=== PATIENT | female | born 1960 | race Caucasian/White ===

== ENCOUNTER 2024-12-23 11:16 | Emergency (ER) | payer MEDICARE, BC ==
[~2024-12-23] VITALS: Ht 172.7 cm; Wt 77.1 kg
[2024-12-23 11:56] LABS: BASOPHILS # (AUTO) 0.1 K/uL (0.0-0.2); BASOPHILS % (AUTO) 0.5 % (0.0-2.0); EOSINOPHILS # (AUTO) 0.4 K/uL (0.0-0.7); EOSINOPHILS % (AUTO) 3.8 % (0.0-6.0); HEMATOCRIT 38 % (33-45); HEMOGLOBIN 13.1 g/dL (11.5-14.8); LYMPHOCYTES # (AUTO) 0.7 K/uL (0.8-4.8); LYMPHOCYTES % (AUTO) 6.6 % (20.0-44.0); MEAN CORPUSCULAR HEMOGLOBIN 31 PG (26.0-33.0); MEAN CORPUSCULAR HGB CONC 34 g/dl (31.0-36.0); MEAN CORPUSCULAR VOLUME 89 fL (82-100); MONOCYTES # (AUTO) 0.6 K/uL (0.1-1.30); MONOCYTES % (AUTO) 5.6 % (2.0-12.0); NEUTROPHILS # (AUTO) 8.9 K/uL (1.8-8.9); NEUTROPHILS % (AUTO) 83.5 % (43.0-81.0); PLATELET COUNT (AUTO) 213 K/uL (150-450); RED BLOOD CELL COUNT(AUTO) 4.27 MIL/uL (4.0-5.2); RED CELL DISTRIBUTION WIDTH 15.8 % (11.5-15.0); WHITE BLOOD COUNT (AUTO) 10.7 K/uL (4.3-11.0)
[2024-12-23 12:02] LABS: CALCIUM, SERUM 8.6 mg/dL (8.5-10.1); CREATININE 0.5 mg/dL (0.6-1.3); POTASSIUM 3.2 mmol/L (3.5-5.1)
[2024-12-23 12:09] LABS: ALBUMIN 2.5 g/dL (3.4-5.0); BILIRUBIN,DIRECT 0.3 mg/dL (0.0-0.2); BILIRUBIN,TOTAL 0.9 mg/dL (0.2-1.0)
[2024-12-23 14:35] LABS: INR 1.31 (0.91-1.10); PROTHROMBIN TIME 13.6 SECS (9.2-11.1)
[2024-12-23 15:09] VITALS: BP 145/70; TEMP 97.8; O2SAT 98
== END 2024-12-23 15:10 | disposition home or self-care (01) ==
LOC: ER 11:18
DX: R53.1 Weakness (principal); I10 Essential (primary) hypertension; E11.9 Type 2 diabetes mellitus without complications; C78.7 Secondary malignant neoplasm of liver and intrahepatic bile duct; Z85.07 Personal history of malignant neoplasm of pancreas; Z88.0 Allergy status to penicillin; W10.9XXA Fall (on) (from) unspecified stairs and steps, initial encounter; Y93.89 Activity, other specified; Y92.89 Other specified places as the place of occurrence of the external cause; Y99.8 Other external cause status
CPT/HCPCS: 36415; 70450-TC; 72125-TC; 80048-TC; 80076-TC; 85025-TC; 85610-TC

== ENCOUNTER 2025-01-06 22:18 | Inpatient (IN) | payer BC, MEDICARE ==
[~2025-01-06] VITALS: Ht 172.7 cm; Wt 76.7 kg
[2025-01-06 22:45] LABS: BASOPHILS % (AUTO) 0.3 % (0.0-2.0); EOSINOPHILS # (AUTO) 0.3 K/uL (0.0-0.7); EOSINOPHILS % (AUTO) 1.8 % (0.0-6.0); HEMATOCRIT 40 % (33-45); HEMOGLOBIN 13.4 g/dL (11.5-14.8); LYMPHOCYTES # (AUTO) 1.1 K/uL (0.8-4.8); LYMPHOCYTES % (AUTO) 6.9 % (20.0-44.0); MEAN CORPUSCULAR HEMOGLOBIN 30 PG (26.0-33.0); MEAN CORPUSCULAR HGB CONC 33 g/dl (31.0-36.0); MEAN CORPUSCULAR VOLUME 91 fL (82-100); MONOCYTES # (AUTO) 0.8 K/uL (0.1-1.30); MONOCYTES % (AUTO) 4.8 % (2.0-12.0); NEUTROPHILS # (AUTO) 14.2 K/uL (1.8-8.9); NEUTROPHILS % (AUTO) 86.2 % (43.0-81.0); PLATELET COUNT (AUTO) 237 K/uL (150-450); RED BLOOD CELL COUNT(AUTO) 4.44 MIL/uL (4.0-5.2); RED CELL DISTRIBUTION WIDTH 16.1 % (11.5-15.0); WHITE BLOOD COUNT (AUTO) 16.4 K/uL (4.3-11.0)
[2025-01-06 22:51] LABS: CARBON DIOXIDE 23 mmol/L (21-32); CHLORIDE 94 mmol/L (98-107); CREATININE 1.1 mg/dL (0.6-1.3); POTASSIUM 3.5 mmol/L (3.5-5.1); SODIUM SERUM 134 mmol/L (136-145); UREA NITROGEN, BLOOD 23 mg/dL (7-18)
[2025-01-06 22:57] LABS: ALANINE AMINOTRANSFERASE 23 U/L (12-78); ALBUMIN 2.4 g/dL (3.4-5.0); ALKALINE PHOSPHATASE 156 U/L (46-116); ASPARTATE AMINOTRANSFERASE 26 U/L (15-37); BILIRUBIN,DIRECT 0.6 mg/dL (0.0-0.2); BILIRUBIN,TOTAL 1.3 mg/dL (0.2-1.0); LIPASE 66 U/L (16-77); TOTAL PROTEIN, SERUM 5.9 g/dL (6.4-8.2)
[2025-01-06 22:58] LABS: GLUCOSE 368 mg/dL (74-106)
[2025-01-06 22:59] LABS: LACTIC ACID 2.8 mmol/L (0.4-2.0)
[2025-01-06] MEDS ORDERED: IV NS 0.9% 1,000 ML BAG IV ONE (23:00)
[2025-01-06 23:02] LABS: MAGNESIUM 2.1 mg/dL (1.8-2.4)
[2025-01-06 23:06] LABS: THYROID STIMULATING HORMONE 3.39 uIU/mL (0.358-3.74)
[2025-01-06] MEDS ORDERED: AZTREONAM 1 G VIAL ONE ×2 (23:06→23:39)
[2025-01-06] MEDS ORDERED: VANCOMYCIN 1 GM /D5W 250 ML PB IV ONE (23:07)
[2025-01-06] MEDS: AZTREONAM 2 G in IV NS 0.9% 100 ML IV ONE (23:20)
[2025-01-06] MEDS: IV NS 0.9% 1,000 ML BAG IV ONE (23:20)
[2025-01-06] MEDS: VANCOMYCIN 1 GM in IV D5W 250 ML IV ONE (23:55)
[2025-01-07] VITALS (7 sets, daily range): BP systolic 135–147; BP diastolic 45–60; TEMP 97.3–97.7; O2SAT 94–96
[2025-01-07] MEDS ORDERED: ONDANSETRON HCL/PF 4 MG/2 ML VIAL IVP PRN
[2025-01-07] MEDS ORDERED: MAGNESIUM HYDROXIDE 30 ML UDC PO PRN
[2025-01-07] MEDS: ENOXAPARIN SODIUM 40 MG/0.4 ML DISP.SYRIN SQ SCH
[2025-01-07 01:44] LABS: APPEARANCE,URINE CLEAR (CLEAR); BILIRUBIN,URINE 2+ (NEGATIVE); BLOOD, URINE NEGATIVE Ery/uL (NEGATIVE); COLOR,URINE DARK YELLOW (YELLOW); KETONES,URINE 3+ mg/dL (NEGATIVE); LEUKOCYTE ESTERASE ,URINE NEGATIVE (NEGATIVE); NITRITE, URINE NEGATIVE (NEGATIVE); PROTEIN,URINE 2+ mg/dl (NEGATIVE); UGLUCOSE TRACE mg/dL (NEGATIVE)
[2025-01-07 01:46] LABS: ADD URINE CULTURE NO; BACTERIA,URINE Rare /HPF (None Seen); SQUAMOUS EPITHELIAL CELL,UR Moderate /HPF (None Seen); WBC,URINE 0-2 /HPF (0-3)
[2025-01-07 01:47] LABS: HYALINE CASTS, URINE Few /LPF (None Seen)
[2025-01-07] MEDS: TRAZODONE 50 MG TABLET PO SCH (02:25)
[2025-01-07] MEDS ORDERED: ATOR40TA PO (04:23)
[2025-01-07] MEDS ORDERED: AZTREONAM 1 G in IV NS 0.9% 100 ML IV SCH ×2 (05:00→07:00)
[2025-01-07] MEDS ORDERED: AZTREONAM 1 G VIAL IM SCH (05:00)
[2025-01-07 06:52] LABS: BASOPHILS % (AUTO) 0.1 % (0.0-2.0); EOSINOPHILS # (AUTO) 0.2 K/uL (0.0-0.7); EOSINOPHILS % (AUTO) 1.4 % (0.0-6.0); HEMATOCRIT 40 % (33-45); HEMOGLOBIN 13.2 g/dL (11.5-14.8); LYMPHOCYTES # (AUTO) 0.7 K/uL (0.8-4.8); LYMPHOCYTES % (AUTO) 4.8 % (20.0-44.0); MEAN CORPUSCULAR HEMOGLOBIN 30 PG (26.0-33.0); MEAN CORPUSCULAR HGB CONC 33 g/dl (31.0-36.0); MEAN CORPUSCULAR VOLUME 91 fL (82-100); MONOCYTES # (AUTO) 0.7 K/uL (0.1-1.30); NEUTROPHILS # (AUTO) 12.2 K/uL (1.8-8.9); NEUTROPHILS % (AUTO) 88.7 % (43.0-81.0); PLATELET COUNT (AUTO) 196 K/uL (150-450); RED BLOOD CELL COUNT(AUTO) 4.36 MIL/uL (4.0-5.2); RED CELL DISTRIBUTION WIDTH 16.4 % (11.5-15.0); WHITE BLOOD COUNT (AUTO) 13.7 K/uL (4.3-11.0)
[2025-01-07] MEDS: PANTOPRAZOLE 40 MG TABLET.DR PO SCH (08:47)
[2025-01-07] MEDS: LEVOFLOXACIN 750 MG /D5W 150ML 750 MG in PREMIX 1 EA IV SCH (08:47)
[2025-01-07] MEDS: VANCOMYCIN 500 MG in IV D5W 100ml IV ONE (09:35)
[2025-01-07 10:37] LABS: ALBUMIN 2.4 g/dL (3.4-5.0); BILIRUBIN,DIRECT 0.5 mg/dL (0.0-0.2); BILIRUBIN,TOTAL 1.1 mg/dL (0.2-1.0); CALCIUM, SERUM 9.1 mg/dL (8.5-10.1); CREATININE 1.1 mg/dL (0.6-1.3); MAGNESIUM 2.1 mg/dL (1.8-2.4); PHOSPHORUS 2.6 mg/dL (2.5-4.9); POTASSIUM 3.7 mmol/L (3.5-5.1); TOTAL PROTEIN, SERUM 6.1 g/dL (6.4-8.2)
[2025-01-07] MEDS ORDERED: ESCI20TA PO (12:02)
[2025-01-07] MEDS ORDERED: LISI40TA13 PO (12:02)
[2025-01-07] MEDS ORDERED: METO25TA4 PO (12:02)
[2025-01-07] MEDS ORDERED: BLOO-668 IN (12:02)
[2025-01-07] MEDS ORDERED: INSU300I SQ (12:02)
[2025-01-07] MEDS ORDERED: INSU100I14 SQ (12:02)
[2025-01-07] MEDS ORDERED: ATOR80TA PO (12:02)
[2025-01-07 12:42] LABS: INR 1.51 (0.91-1.10); PROTHROMBIN TIME 15.6 SECS (9.2-11.1)
[2025-01-07] MEDS: VANCOMYCIN 750 MG in IV D5W 250 ML IV SCH (21:35)
[2025-01-08 06:37] LABS: INR 1.52 (0.91-1.10); PARTIAL THROMBOPLASTIN TIME 27.3 SEC (24.3-34.3); PROTHROMBIN TIME 15.7 SECS (9.2-11.1)
[2025-01-08 08:00] VITALS: BP 113/86; TEMP 98.8; O2SAT 96
[2025-01-08 08:12] LABS: BASOPHILS # (AUTO) 0.1 K/uL (0.0-0.2); BASOPHILS % (AUTO) 0.3 % (0.0-2.0); EOSINOPHILS # (AUTO) 0.1 K/uL (0.0-0.7); EOSINOPHILS % (AUTO) 0.9 % (0.0-6.0); HEMATOCRIT 40 % (33-45); HEMOGLOBIN 13.2 g/dL (11.5-14.8); LYMPHOCYTES # (AUTO) 0.6 K/uL (0.8-4.8); LYMPHOCYTES % (AUTO) 3.8 % (20.0-44.0); MEAN CORPUSCULAR HEMOGLOBIN 30 PG (26.0-33.0); MEAN CORPUSCULAR HGB CONC 33 g/dl (31.0-36.0); MEAN CORPUSCULAR VOLUME 92 fL (82-100); MONOCYTES # (AUTO) 0.7 K/uL (0.1-1.30); MONOCYTES % (AUTO) 4.7 % (2.0-12.0); NEUTROPHILS # (AUTO) 13.2 K/uL (1.8-8.9); NEUTROPHILS % (AUTO) 90.3 % (43.0-81.0); PLATELET COUNT (AUTO) 184 K/uL (150-450); RED BLOOD CELL COUNT(AUTO) 4.39 MIL/uL (4.0-5.2); RED CELL DISTRIBUTION WIDTH 16.3 % (11.5-15.0); WHITE BLOOD COUNT (AUTO) 14.6 K/uL (4.3-11.0)
[2025-01-08 08:28] LABS: CALCIUM, SERUM 8.9 mg/dL (8.5-10.1); CREATININE 1.2 mg/dL (0.6-1.3); MAGNESIUM 2.2 mg/dL (1.8-2.4); PHOSPHORUS 2.8 mg/dL (2.5-4.9); POTASSIUM 3.5 mmol/L (3.5-5.1)
[2025-01-08 08:30] LABS: ALBUMIN 2.5 g/dL (3.4-5.0); BILIRUBIN,DIRECT 0.6 mg/dL (0.0-0.2); BILIRUBIN,TOTAL 1.3 mg/dL (0.2-1.0); TOTAL PROTEIN, SERUM 6.2 g/dL (6.4-8.2)
[2025-01-08] MEDS ORDERED: IOHEXOL-300 100 ML VIAL IV ONE (10:47)
[2025-01-08] MEDS ORDERED: IV NS 0.9% 250 ML IV ONE (10:47)
[2025-01-08] MEDS: INSULIN REGULAR, HUMAN 100 UNIT/ML 3 ML VIAL SQ PRN (12:26)
[2025-01-08] MEDS ORDERED: DEXTROSE 50%-WATER 50 ML DISP.SYRIN IV PRN (12:30)
[2025-01-08 13:47] LABS: THYROID STIMULATING HORMONE 3.23 uIU/mL (0.358-3.74)
[2025-01-08] MEDS: INSULIN REGULAR, HUMAN 100 UNIT/ML 10 ML VIAL SQ ONE (14:06)
[2025-01-08 16:00] VITALS: BP 132/69; TEMP 97.7; O2SAT 96
[2025-01-08] MEDS: ACETAMINOPHEN 325 MG TABLET PO PRN (16:14)
[2025-01-08 16:59] VITALS: BP 113/86; TEMP 98.8; O2SAT 96
[2025-01-08] MEDS: BLOOD SUGAR DIAGNOSTIC 1 EACH STRIP VI SCH (17:20)
[2025-01-08 21:08] VITALS: BP 112/56; TEMP 97.7; O2SAT 98
[2025-01-08] MEDS: METOPROLOL SUCCINATE 25 MG TAB.SR.24H PO SCH (21:39)
[2025-01-08] MEDS: INSULIN GLARGINE, 100 UNIT/ML CARTRIDGE SQ SCH (22:10)
[2025-01-08] MEDS: *INSULIN REGULAR(HUMULIN R)HUM 100 UNIT/ML VIAL SQ PRN (22:18)
[2025-01-09 06:12] LABS: AFP, TUMOR MARKER <1.8 ng/mL (0.0-9.2)
[2025-01-09 06:59] LABS: ALBUMIN 2.4 g/dL (3.4-5.0); BILIRUBIN,TOTAL 1.2 mg/dL (0.2-1.0); CALCIUM, SERUM 9.1 mg/dL (8.5-10.1); POTASSIUM 3.3 mmol/L (3.5-5.1); TOTAL PROTEIN, SERUM 6.1 g/dL (6.4-8.2)
[2025-01-09 07:08] LABS: BASOPHILS % (AUTO) 0.1 % (0.0-2.0); EOSINOPHILS # (AUTO) 0.3 K/uL (0.0-0.7); EOSINOPHILS % (AUTO) 1.8 % (0.0-6.0); HEMATOCRIT 43 % (33-45); HEMOGLOBIN 14.6 g/dL (11.5-14.8); LYMPHOCYTES # (AUTO) 0.9 K/uL (0.8-4.8); MEAN CORPUSCULAR HEMOGLOBIN 31 PG (26.0-33.0); MEAN CORPUSCULAR HGB CONC 34 g/dl (31.0-36.0); MEAN CORPUSCULAR VOLUME 90 fL (82-100); MONOCYTES # (AUTO) 0.6 K/uL (0.1-1.30); MONOCYTES % (AUTO) 4.2 % (2.0-12.0); NEUTROPHILS # (AUTO) 13.5 K/uL (1.8-8.9); NEUTROPHILS % (AUTO) 87.9 % (43.0-81.0); PLATELET COUNT (AUTO) 176 K/uL (150-450); RED BLOOD CELL COUNT(AUTO) 4.75 MIL/uL (4.0-5.2); RED CELL DISTRIBUTION WIDTH 16.1 % (11.5-15.0); WHITE BLOOD COUNT (AUTO) 15.3 K/uL (4.3-11.0)
[2025-01-09 08:00] VITALS: BP 112/56; TEMP 97.3; O2SAT 97
[2025-01-09 08:10] LABS: CARBOHYDRATE AG 19-9 28634 U/mL (0-35); FOLIC ACID 7.4 ng/mL (>3.0)
[2025-01-09] MEDS ORDERED: LISINOPRIL (20MG) 20 MG TABLET PO SCH (09:00)
[2025-01-09] MEDS: ESCITALOPRAM OXALATE (10 MG) 10 MG TABLET PO SCH (09:20)
[2025-01-09] MEDS: POTASSIUM CHLORIDE 20 MEQ POWDER PACKET PO ONE (09:21)
[2025-01-09] MEDS: LIDOCAINE 5% (PATCH) 1 EA PATCH TP SCH (11:49)
[2025-01-09 16:00] VITALS: BP 104/57; TEMP 97.3; O2SAT 99
[2025-01-09 20:00] VITALS: BP 98/52; TEMP 97.9; O2SAT 97
[2025-01-10 03:00] VITALS: BP 98/52; TEMP 97.9; O2SAT 97
[2025-01-10 06:35] LABS: BASOPHILS % (AUTO) 0.1 % (0.0-2.0); EOSINOPHILS # (AUTO) 0.1 K/uL (0.0-0.7); HEMATOCRIT 40 % (33-45); HEMOGLOBIN 13.1 g/dL (11.5-14.8); LYMPHOCYTES % (AUTO) 6.6 % (20.0-44.0); MEAN CORPUSCULAR HEMOGLOBIN 30 PG (26.0-33.0); MEAN CORPUSCULAR HGB CONC 33 g/dl (31.0-36.0); MEAN CORPUSCULAR VOLUME 92 fL (82-100); MONOCYTES # (AUTO) 0.8 K/uL (0.1-1.30); MONOCYTES % (AUTO) 5.8 % (2.0-12.0); NEUTROPHILS # (AUTO) 12.7 K/uL (1.8-8.9); NEUTROPHILS % (AUTO) 86.5 % (43.0-81.0); PLATELET COUNT (AUTO) 122 K/uL (150-450); RED BLOOD CELL COUNT(AUTO) 4.31 MIL/uL (4.0-5.2); RED CELL DISTRIBUTION WIDTH 15.9 % (11.5-15.0); WHITE BLOOD COUNT (AUTO) 14.7 K/uL (4.3-11.0)
[2025-01-10 06:48] LABS: CALCIUM, SERUM 8.8 mg/dL (8.5-10.1)
[2025-01-10 06:54] LABS: ALBUMIN 2.1 g/dL (3.4-5.0); BILIRUBIN,TOTAL 1.1 mg/dL (0.2-1.0); POTASSIUM 3.8 mmol/L (3.5-5.1); TOTAL PROTEIN, SERUM 5.4 g/dL (6.4-8.2)
[2025-01-10 08:00] VITALS: BP 96/47; TEMP 97.7; O2SAT 97
[2025-01-10 16:00] VITALS: BP 95/49; TEMP 97.9; O2SAT 97
[2025-01-10] MEDS: SODIUM CHLORIDE 1000 MG TABLET PO SCH (16:57)
[2025-01-10 20:00] VITALS: BP 107/55; TEMP 97.5; O2SAT 97
[2025-01-11 07:00] VITALS: BP 102/54; TEMP 98.1; O2SAT 98
[2025-01-11 07:37] LABS: ALBUMIN 2.1 g/dL (3.4-5.0); BILIRUBIN,TOTAL 1.3 mg/dL (0.2-1.0); CALCIUM, SERUM 8.5 mg/dL (8.5-10.1); PHOSPHORUS 2.4 mg/dL (2.5-4.9); TOTAL PROTEIN, SERUM 5.5 g/dL (6.4-8.2)
[2025-01-11 07:44] LABS: THYROID STIMULATING HORMONE 4.09 uIU/mL (0.358-3.74); URIC ACID 5.9 mg/dL (2.6-7.2)
[2025-01-11 08:04] LABS: CREATININE 0.9 mg/dL (0.6-1.3)
[2025-01-11 08:27] LABS: BASOPHILS % (AUTO) 0.1 % (0.0-2.0); EOSINOPHILS # (AUTO) 0.2 K/uL (0.0-0.7); EOSINOPHILS % (AUTO) 1.4 % (0.0-6.0); HEMATOCRIT 42 % (33-45); HEMOGLOBIN 13.8 g/dL (11.5-14.8); LYMPHOCYTES # (AUTO) 0.7 K/uL (0.8-4.8); LYMPHOCYTES % (AUTO) 5.5 % (20.0-44.0); MEAN CORPUSCULAR HEMOGLOBIN 30 PG (26.0-33.0); MEAN CORPUSCULAR HGB CONC 33 g/dl (31.0-36.0); MEAN CORPUSCULAR VOLUME 92 fL (82-100); MONOCYTES # (AUTO) 0.8 K/uL (0.1-1.30); MONOCYTES % (AUTO) 5.8 % (2.0-12.0); NEUTROPHILS # (AUTO) 11.4 K/uL (1.8-8.9); NEUTROPHILS % (AUTO) 87.2 % (43.0-81.0); PLATELET COUNT (AUTO) 115 K/uL (150-450); RED BLOOD CELL COUNT(AUTO) 4.55 MIL/uL (4.0-5.2); RED CELL DISTRIBUTION WIDTH 16.2 % (11.5-15.0)
[2025-01-11] MEDS: SPIRONOLACTONE 25 MG TABLET PO SCH (11:33)
[2025-01-11 16:00] VITALS: BP 105/65; TEMP 98.4; O2SAT 96
[2025-01-11] MEDS: K PHOS NEUTRAL 250 MG TABLET PO ONE (16:16)
[2025-01-11] MEDS ORDERED: GLUCERNA SHAKE 237 ML CAN PO SCH (18:30)
[2025-01-11 20:00] VITALS: BP 108/92; TEMP 97.5; O2SAT 96
[2025-01-11 22:09] LABS: VITAMIN B1 THIAMINE,WB 67.8 nmol/L (66.5-200.0)
[2025-01-11] MEDS: IV NS 0.9% 1,000 ML IV PRN (23:08)
[2025-01-12 00:30] LABS: PROTEIN, BODY FLUID 2.3 G/DL
[2025-01-12 00:48] LABS: APPEARANCE,SPUN,BODY FLUID CLEAR (CLEAR); TOTAL VOLUME,BODY FLUID 680 mL
[2025-01-12 01:32] LABS: WBC, BODY FLUID 76 /cu. mm. (0-200)
[2025-01-12 03:41] LABS: MACROPHAGES, BODY FLUID 23
[2025-01-12] MEDS: MAG HYDROX/AL HYDROX/SIMETH 30 ML UDC PO PRN (07:45)
[2025-01-12 08:00] VITALS: BP 120/70; TEMP 96.6; O2SAT 92
[2025-01-12 08:02] LABS: BASOPHILS % (AUTO) 0.2 % (0.0-2.0); EOSINOPHILS # (AUTO) 0.2 K/uL (0.0-0.7); EOSINOPHILS % (AUTO) 1.4 % (0.0-6.0); HEMATOCRIT 39 % (33-45); HEMOGLOBIN 13.1 g/dL (11.5-14.8); LYMPHOCYTES # (AUTO) 0.7 K/uL (0.8-4.8); LYMPHOCYTES % (AUTO) 5.5 % (20.0-44.0); MEAN CORPUSCULAR HEMOGLOBIN 31 PG (26.0-33.0); MEAN CORPUSCULAR HGB CONC 34 g/dl (31.0-36.0); MEAN CORPUSCULAR VOLUME 91 fL (82-100); MONOCYTES # (AUTO) 0.9 K/uL (0.1-1.30); NEUTROPHILS # (AUTO) 11.6 K/uL (1.8-8.9); NEUTROPHILS % (AUTO) 85.9 % (43.0-81.0); PLATELET COUNT (AUTO) 103 K/uL (150-450); RED BLOOD CELL COUNT(AUTO) 4.23 MIL/uL (4.0-5.2); RED CELL DISTRIBUTION WIDTH 16.5 % (11.5-15.0); WHITE BLOOD COUNT (AUTO) 13.5 K/uL (4.3-11.0)
[2025-01-12] MEDS: GLUCERNA SHAKE 237 ML CAN PO SCH (08:12)
[2025-01-12 08:26] LABS: LACTIC ACID 1.9 mmol/L (0.4-2.0)
[2025-01-12 08:37] LABS: ALBUMIN 1.8 g/dL (3.4-5.0); BILIRUBIN,TOTAL 1.1 mg/dL (0.2-1.0); CALCIUM, SERUM 8.1 mg/dL (8.5-10.1); CREATININE 0.8 mg/dL (0.6-1.3); MAGNESIUM 2.1 mg/dL (1.8-2.4); PHOSPHORUS 4.3 mg/dL (2.5-4.9); POTASSIUM 4.2 mmol/L (3.5-5.1); TOTAL PROTEIN, SERUM 5.2 g/dL (6.4-8.2)
[2025-01-12 16:00] VITALS: BP 96/54; TEMP 98.2; O2SAT 94
[2025-01-12] MEDS: LACTULOSE 10 G/15 ML UDC (PYXIS) PO SCH (16:47)
[2025-01-12] MEDS: SPIRONOLACTONE 25 MG TABLET PO SCH (16:48)
[2025-01-12] MEDS: MEGESTROL ACETATE 40 MG TABLET PO SCH (16:49)
[2025-01-12 20:00] VITALS: BP_SYST 104; BP_DIAS 54; BP_DIAS 84; TEMP 98.1; O2SAT 96
[2025-01-12] MEDS: Z GUARD REMEDY 4 OZ OINT TP SCH (21:10)
[2025-01-13 06:40] LABS: BASOPHILS % (AUTO) 0.1 % (0.0-2.0); EOSINOPHILS # (AUTO) 0.2 K/uL (0.0-0.7); EOSINOPHILS % (AUTO) 1.7 % (0.0-6.0); HEMATOCRIT 38 % (33-45); HEMOGLOBIN 13.2 g/dL (11.5-14.8); LYMPHOCYTES # (AUTO) 0.9 K/uL (0.8-4.8); LYMPHOCYTES % (AUTO) 6.3 % (20.0-44.0); MEAN CORPUSCULAR HEMOGLOBIN 32 PG (26.0-33.0); MEAN CORPUSCULAR HGB CONC 34 g/dl (31.0-36.0); MEAN CORPUSCULAR VOLUME 92 fL (82-100); MONOCYTES # (AUTO) 1.2 K/uL (0.1-1.30); MONOCYTES % (AUTO) 8.5 % (2.0-12.0); NEUTROPHILS # (AUTO) 11.7 K/uL (1.8-8.9); NEUTROPHILS % (AUTO) 83.4 % (43.0-81.0); PLATELET COUNT (AUTO) 109 K/uL (150-450); RED BLOOD CELL COUNT(AUTO) 4.16 MIL/uL (4.0-5.2); RED CELL DISTRIBUTION WIDTH 16.6 % (11.5-15.0); WHITE BLOOD COUNT (AUTO) 14.1 K/uL (4.3-11.0)
[2025-01-13 07:00] VITALS: BP 97/61; TEMP 98.1; O2SAT 97
[2025-01-13 07:29] LABS: ALBUMIN 1.9 g/dL (3.4-5.0); BILIRUBIN,TOTAL 0.9 mg/dL (0.2-1.0); CREATININE 0.8 mg/dL (0.6-1.3); POTASSIUM 4.3 mmol/L (3.5-5.1); TOTAL PROTEIN, SERUM 5.3 g/dL (6.4-8.2)
[2025-01-13] MEDS: BISACODYL (5 MG) 5 MG TABLET.DR PO ONE (14:59)
[2025-01-13 16:00] VITALS: BP 102/57; TEMP 98.4; O2SAT 94
[2025-01-13] MEDS: LACTULOSE 10 G/15 ML UDC (PYXIS) PO SCH (16:49)
[2025-01-13 20:00] VITALS: BP 101/58; TEMP 97.7; O2SAT 96
[2025-01-14 07:23] LABS: ALBUMIN 1.8 g/dL (3.4-5.0); CREATININE 0.9 mg/dL (0.6-1.3); POTASSIUM 4.5 mmol/L (3.5-5.1); TOTAL PROTEIN, SERUM 5.6 g/dL (6.4-8.2)
[2025-01-14 07:41] LABS: BASOPHILS % (AUTO) 0.1 % (0.0-2.0); EOSINOPHILS # (AUTO) 0.2 K/uL (0.0-0.7); EOSINOPHILS % (AUTO) 1.2 % (0.0-6.0); HEMATOCRIT 43 % (33-45); HEMOGLOBIN 14.4 g/dL (11.5-14.8); LYMPHOCYTES % (AUTO) 5.7 % (20.0-44.0); MEAN CORPUSCULAR HEMOGLOBIN 31 PG (26.0-33.0); MEAN CORPUSCULAR HGB CONC 33 g/dl (31.0-36.0); MEAN CORPUSCULAR VOLUME 92 fL (82-100); MONOCYTES # (AUTO) 1.6 K/uL (0.1-1.30); MONOCYTES % (AUTO) 9.3 % (2.0-12.0); NEUTROPHILS # (AUTO) 14.5 K/uL (1.8-8.9); NEUTROPHILS % (AUTO) 83.7 % (43.0-81.0); PLATELET COUNT (AUTO) 115 K/uL (150-450); RED BLOOD CELL COUNT(AUTO) 4.68 MIL/uL (4.0-5.2); RED CELL DISTRIBUTION WIDTH 16.5 % (11.5-15.0); WHITE BLOOD COUNT (AUTO) 17.3 K/uL (4.3-11.0)
[2025-01-14 08:00] VITALS: BP 113/67; TEMP 98.1; O2SAT 97
[2025-01-14 16:15] VITALS: BP 120/52; TEMP 98.1; O2SAT 95
[2025-01-14 20:00] VITALS: BP 95/62; TEMP 97.5; O2SAT 96
[2025-01-15 07:30] VITALS: BP 95/58; TEMP 97.9; O2SAT 91
[2025-01-15 10:54] LABS: BASOPHILS % (AUTO) 0.3 % (0.0-2.0); EOSINOPHILS # (AUTO) 0.2 K/uL (0.0-0.7); EOSINOPHILS % (AUTO) 1.3 % (0.0-6.0); HEMATOCRIT 41 % (33-45); HEMOGLOBIN 13.6 g/dL (11.5-14.8); LYMPHOCYTES # (AUTO) 0.9 K/uL (0.8-4.8); LYMPHOCYTES % (AUTO) 5.6 % (20.0-44.0); MEAN CORPUSCULAR HEMOGLOBIN 31 PG (26.0-33.0); MEAN CORPUSCULAR HGB CONC 33 g/dl (31.0-36.0); MEAN CORPUSCULAR VOLUME 92 fL (82-100); MONOCYTES # (AUTO) 1.2 K/uL (0.1-1.30); MONOCYTES % (AUTO) 7.3 % (2.0-12.0); NEUTROPHILS # (AUTO) 14.5 K/uL (1.8-8.9); NEUTROPHILS % (AUTO) 85.5 % (43.0-81.0); PLATELET COUNT (AUTO) 128 K/uL (150-450); RED BLOOD CELL COUNT(AUTO) 4.48 MIL/uL (4.0-5.2); RED CELL DISTRIBUTION WIDTH 16.7 % (11.5-15.0); WHITE BLOOD COUNT (AUTO) 16.9 K/uL (4.3-11.0)
[2025-01-15 11:02] LABS: ALBUMIN 1.9 g/dL (3.4-5.0); BILIRUBIN,TOTAL 1.2 mg/dL (0.2-1.0); CREATININE 0.9 mg/dL (0.6-1.3); POTASSIUM 4.7 mmol/L (3.5-5.1); TOTAL PROTEIN, SERUM 5.4 g/dL (6.4-8.2)
[2025-01-15 16:00] VITALS: BP 91/59; TEMP 97.7; O2SAT 100
[2025-01-15 20:00] VITALS: BP 96/75; TEMP 97.5; O2SAT 92; O2SAT 95
[2025-01-16 06:54] LABS: BASOPHILS # (AUTO) 0.1 K/uL (0.0-0.2); BASOPHILS % (AUTO) 0.4 % (0.0-2.0); EOSINOPHILS # (AUTO) 0.1 K/uL (0.0-0.7); EOSINOPHILS % (AUTO) 0.8 % (0.0-6.0); HEMATOCRIT 40 % (33-45); HEMOGLOBIN 13.3 g/dL (11.5-14.8); LYMPHOCYTES % (AUTO) 5.4 % (20.0-44.0); MEAN CORPUSCULAR HEMOGLOBIN 31 PG (26.0-33.0); MEAN CORPUSCULAR HGB CONC 34 g/dl (31.0-36.0); MEAN CORPUSCULAR VOLUME 92 fL (82-100); MONOCYTES # (AUTO) 1.1 K/uL (0.1-1.30); MONOCYTES % (AUTO) 6.2 % (2.0-12.0); NEUTROPHILS # (AUTO) 15.8 K/uL (1.8-8.9); NEUTROPHILS % (AUTO) 87.2 % (43.0-81.0); PLATELET COUNT (AUTO) 130 K/uL (150-450); RED BLOOD CELL COUNT(AUTO) 4.32 MIL/uL (4.0-5.2); RED CELL DISTRIBUTION WIDTH 16.5 % (11.5-15.0); WHITE BLOOD COUNT (AUTO) 18.1 K/uL (4.3-11.0)
[2025-01-16 07:11] LABS: ALBUMIN 1.9 g/dL (3.4-5.0); BILIRUBIN,TOTAL 1.3 mg/dL (0.2-1.0); CALCIUM, SERUM 7.9 mg/dL (8.5-10.1); MAGNESIUM 2.4 mg/dL (1.8-2.4); PHOSPHORUS 4.4 mg/dL (2.5-4.9); POTASSIUM 4.5 mmol/L (3.5-5.1); TOTAL PROTEIN, SERUM 5.3 g/dL (6.4-8.2)
[2025-01-16 07:30] VITALS: BP 96/53; TEMP 97.7; O2SAT 94
[2025-01-16] MEDS: FUROSEMIDE 20 MG TABLET PO SCH (10:38)
[2025-01-16 16:17] VITALS: BP 94/50; TEMP 98.2; O2SAT 97
[2025-01-16 20:00] VITALS: BP 95/49; TEMP 98.1; O2SAT 93
[2025-01-17 07:43] LABS: BASOPHILS % (AUTO) 0.2 % (0.0-2.0); EOSINOPHILS # (AUTO) 0.2 K/uL (0.0-0.7); EOSINOPHILS % (AUTO) 1.1 % (0.0-6.0); HEMATOCRIT 40 % (33-45); HEMOGLOBIN 13.2 g/dL (11.5-14.8); LYMPHOCYTES # (AUTO) 0.8 K/uL (0.8-4.8); LYMPHOCYTES % (AUTO) 5.1 % (20.0-44.0); MEAN CORPUSCULAR HEMOGLOBIN 31 PG (26.0-33.0); MEAN CORPUSCULAR HGB CONC 33 g/dl (31.0-36.0); MEAN CORPUSCULAR VOLUME 91 fL (82-100); MONOCYTES # (AUTO) 0.9 K/uL (0.1-1.30); MONOCYTES % (AUTO) 5.4 % (2.0-12.0); NEUTROPHILS # (AUTO) 14.4 K/uL (1.8-8.9); NEUTROPHILS % (AUTO) 88.2 % (43.0-81.0); PLATELET COUNT (AUTO) 130 K/uL (150-450); RED BLOOD CELL COUNT(AUTO) 4.33 MIL/uL (4.0-5.2); RED CELL DISTRIBUTION WIDTH 16.3 % (11.5-15.0); WHITE BLOOD COUNT (AUTO) 16.4 K/uL (4.3-11.0)
[2025-01-17 08:00] VITALS: BP 99/60; TEMP 97.3; O2SAT 99
[2025-01-17 08:31] LABS: ALBUMIN 1.9 g/dL (3.4-5.0); CALCIUM, SERUM 7.7 mg/dL (8.5-10.1); CREATININE 1.2 mg/dL (0.6-1.3); MAGNESIUM 2.5 mg/dL (1.8-2.4); PHOSPHORUS 4.2 mg/dL (2.5-4.9); POTASSIUM 4.3 mmol/L (3.5-5.1); TOTAL PROTEIN, SERUM 5.1 g/dL (6.4-8.2)
[2025-01-17] MEDS ORDERED: ALBUMIN 25% 25 GM in PREMIX 1 EA IV SCH (10:30)
[2025-01-17] MEDS ORDERED: ALBUMIN 25% 12.5 GM in PREMIX 1 EA IV PRN (11:00)
[2025-01-17 14:00] VITALS: BP 90/50; TEMP 97.9; O2SAT 93
[2025-01-17 16:00] VITALS: BP 90/50; TEMP 97.9; O2SAT 99
[2025-01-17 20:00] VITALS: BP 105/51; TEMP 98.1; O2SAT 94; O2SAT 97
[2025-01-17] MEDS: BISACODYL SUPP (10 MG) 10 MG/SUPP.RECT SUPP.RECT RC PRN (21:57)
[2025-01-18 08:00] VITALS: BP 89/51; TEMP 97.5; O2SAT 94
[2025-01-18] MEDS ORDERED: ALBUMIN 25% 25 GM in PREMIX 1 EA IV SCH (10:00)
[2025-01-18 10:18] LABS: BASOPHILS # (AUTO) 0.1 K/uL (0.0-0.2); BASOPHILS % (AUTO) 0.3 % (0.0-2.0); EOSINOPHILS # (AUTO) 0.1 K/uL (0.0-0.7); EOSINOPHILS % (AUTO) 0.4 % (0.0-6.0); HEMATOCRIT 39 % (33-45); LYMPHOCYTES % (AUTO) 5.6 % (20.0-44.0); MEAN CORPUSCULAR HEMOGLOBIN 31 PG (26.0-33.0); MEAN CORPUSCULAR HGB CONC 34 g/dl (31.0-36.0); MEAN CORPUSCULAR VOLUME 92 fL (82-100); MONOCYTES # (AUTO) 0.7 K/uL (0.1-1.30); MONOCYTES % (AUTO) 3.6 % (2.0-12.0); NEUTROPHILS # (AUTO) 16.6 K/uL (1.8-8.9); NEUTROPHILS % (AUTO) 90.1 % (43.0-81.0); PLATELET COUNT (AUTO) 119 K/uL (150-450); RED BLOOD CELL COUNT(AUTO) 4.23 MIL/uL (4.0-5.2); RED CELL DISTRIBUTION WIDTH 16.3 % (11.5-15.0); WHITE BLOOD COUNT (AUTO) 18.5 K/uL (4.3-11.0)
[2025-01-18 10:35] LABS: BILIRUBIN,TOTAL 1.2 mg/dL (0.2-1.0); CALCIUM, SERUM 7.7 mg/dL (8.5-10.1); CREATININE 1.3 mg/dL (0.6-1.3); MAGNESIUM 2.6 mg/dL (1.8-2.4); PHOSPHORUS 4.6 mg/dL (2.5-4.9); POTASSIUM 4.7 mmol/L (3.5-5.1); TOTAL PROTEIN, SERUM 5.1 g/dL (6.4-8.2)
[2025-01-18 14:00] VITALS: BP 91/43; TEMP 98; O2SAT 95
[2025-01-18] MEDS: ALBUMIN 25% 25 GM in PREMIX 1 EA IV SCH (16:06)
[2025-01-18 20:00] VITALS: BP 90/50; TEMP 97.7; O2SAT 94
[2025-01-19 07:30] VITALS: BP 116/61; TEMP 97.9; O2SAT 95
[2025-01-19 10:47] LABS: BASOPHILS % (AUTO) 0.3 % (0.0-2.0); EOSINOPHILS # (AUTO) 0.2 K/uL (0.0-0.7); EOSINOPHILS % (AUTO) 1.6 % (0.0-6.0); HEMATOCRIT 39 % (33-45); HEMOGLOBIN 12.9 g/dL (11.5-14.8); LYMPHOCYTES # (AUTO) 0.8 K/uL (0.8-4.8); LYMPHOCYTES % (AUTO) 5.8 % (20.0-44.0); MEAN CORPUSCULAR HEMOGLOBIN 30 PG (26.0-33.0); MEAN CORPUSCULAR HGB CONC 33 g/dl (31.0-36.0); MEAN CORPUSCULAR VOLUME 92 fL (82-100); MONOCYTES # (AUTO) 0.4 K/uL (0.1-1.30); MONOCYTES % (AUTO) 3.1 % (2.0-12.0); NEUTROPHILS # (AUTO) 11.8 K/uL (1.8-8.9); NEUTROPHILS % (AUTO) 89.2 % (43.0-81.0); PLATELET COUNT (AUTO) 89 K/uL (150-450); RED BLOOD CELL COUNT(AUTO) 4.26 MIL/uL (4.0-5.2); RED CELL DISTRIBUTION WIDTH 16.2 % (11.5-15.0); WHITE BLOOD COUNT (AUTO) 13.3 K/uL (4.3-11.0)
[2025-01-19 11:08] LABS: ALBUMIN 4.4 g/dL (3.4-5.0); BILIRUBIN,TOTAL 2.3 mg/dL (0.2-1.0); C-REACTIVE PROTEIN 4.51 mg/dL (0.0-0.30); CALCIUM, SERUM 8.5 mg/dL (8.5-10.1); CREATININE 1.1 mg/dL (0.6-1.3); MAGNESIUM 2.8 mg/dL (1.8-2.4); PHOSPHORUS 4.2 mg/dL (2.5-4.9); POTASSIUM 4.3 mmol/L (3.5-5.1); TOTAL PROTEIN, SERUM 6.6 g/dL (6.4-8.2)
[2025-01-19 11:21] LABS: THYROID STIMULATING HORMONE 5.43 uIU/mL (0.358-3.74)
[2025-01-19 11:46] LABS: RHEUMATOID FACTOR SCREEN NEGATIVE (NEGATIVE)
[2025-01-19 15:14] LABS: EOSINOPHILS % (MANUAL) 1 % (0-4); LYMPHOCYTES % (MANUAL) 6 % (16-48); MONOCYTES % (MANUAL) 3 % (0-11.0); NEUTROPHILS % (MANUAL) 90 (42-76); PLATELET ESTIMATE DECREASED
[2025-01-19 15:45] VITALS: BP 110/45; TEMP 97.6; O2SAT 95
[2025-01-21 07:06] LABS: FOLIC ACID 10.4 ng/mL (>3.0)
[2025-01-21 23:12] LABS: IMMUNOGLOBULIN A, SERUM 291 mg/dL (87-352); IMMUNOGLOBULIN G, SERUM 663 mg/dL (586-1602); IMMUNOGLOBULIN M, SERUM 148 mg/dL (26-217)
[2025-01-22 01:07] LABS: HEPATITIS B SURFACE AB (QUAL) Non Reactive (.)
[2025-01-22 06:07] LABS: *SPE A/G RATIO 0.9 (0.7-1.7); *SPE ALBUMIN 2.2 g/dL (2.9-4.4); *SPE ALPHA-1-GLOBULIN 0.3 g/dL (0.0-0.4); *SPE ALPHA-2-GLOBULIN 0.5 g/dL (0.4-1.0); *SPE BETA GLOBULIN 0.9 g/dL (0.7-1.3); *SPE GLOBULIN, TOTAL 2.5 g/dL (2.2-3.9); *SPE M-SPIKE Not Observed g/dL (Not Observed); *SPE PROTEIN TOTAL 4.7 g/dL (6.0-8.5); *SPEGAMMA GLOBULIN 0.8 g/dL (0.4-1.8)
[2025-01-23 06:07] LABS: *ANA ANTI-CENTROMERE B AB <0.2 AI (0.0-0.9); *ANA ANTI-DNA(DS) AB, QN 1 IU/mL (0-9); *ANA ANTI-JO-1 <0.2 AI (0.0-0.9); *ANA ANTICHROMATIN ANTIBODY 0.4 AI (0.0-0.9); *ANA RNP ANTIBODIES <0.2 AI (0.0-0.9); *ANA SJOGREN'S ANTI-SS-A <0.2 AI (0.0-0.9); *ANA SJOGREN'S ANTI-SS-B <0.2 AI (0.0-0.9); *ANAANTI-SCLERODERMA-70 AB <0.2 AI (0.0-0.9); *ANASMITH AB <0.2 AI (0.0-0.9)
== END 2025-01-19 18:15 | disposition hospice, inpatient (51) | DRG 435 ==
LOC: ER 22:20 → MED 23:19
PROVIDERS: ADMIT Nurse Practitioner Family; ATTEND Nurse Practitioner Acute Care
PROC: 0W9G3ZZ Drainage of Peritoneal Cavity, Percutaneous Approach (ICD-10-PCS; principal; 2025-01-07)
PROC: 0W9G3ZZ Drainage of Peritoneal Cavity, Percutaneous Approach (ICD-10-PCS; 2025-01-11)
PROC: 0W9G3ZZ Drainage of Peritoneal Cavity, Percutaneous Approach (ICD-10-PCS; 2025-01-18)
DX: C25.0 Malignant neoplasm of head of pancreas (principal); E43 Unspecified severe protein-calorie malnutrition; J96.01 Acute respiratory failure with hypoxia; K65.2 Spontaneous bacterial peritonitis; C78.7 Secondary malignant neoplasm of liver and intrahepatic bile duct; R18.8 Other ascites; E87.4 Mixed disorder of acid-base balance; E87.20 Acidosis, unspecified; J90 Pleural effusion, not elsewhere classified; N17.9 Acute kidney failure, unspecified; C79.71 Secondary malignant neoplasm of right adrenal gland; E87.1 Hypo-osmolality and hyponatremia; E86.0 Dehydration; R62.7 Adult failure to thrive; D72.829 Elevated white blood cell count, unspecified; E80.6 Other disorders of bilirubin metabolism; E11.65 Type 2 diabetes mellitus with hyperglycemia; E87.6 Hypokalemia; E88.09 Other disorders of plasma-protein metabolism, not elsewhere classified; I10 Essential (primary) hypertension; Z88.0 Allergy status to penicillin; M89.8X9 Other specified disorders of bone, unspecified site; E83.9 Disorder of mineral metabolism, unspecified; R53.1 Weakness; Z68.25 Body mass index [BMI] 25.0-25.9, adult; L89.896 Pressure-induced deep tissue damage of other site; L89.526 Pressure-induced deep tissue damage of left ankle; R59.1 Generalized enlarged lymph nodes; R91.1 Solitary pulmonary nodule; L89.326 Pressure-induced deep tissue damage of left buttock; L89.316 Pressure-induced deep tissue damage of right buttock; L89.156 Pressure-induced deep tissue damage of sacral region; C44.509 Unspecified malignant neoplasm of skin of other part of trunk; E87.70 Fluid overload, unspecified; Z51.5 Encounter for palliative care
CPT/HCPCS: 36415; 49083; 71045-TC; 71250-TC; 71260-TC; 80048-TC; 80053-TC; 80076-TC; 80202-TC; 81001; 82040-TC; 82105; 82247-TC; 82248-TC; 82378; 82550-TC; 82607-TC; 82784; 82962-TC; 83605-TC; 83690-TC; 83735-TC; 83880; 83921; 83935-TC; 84100-TC; 84155; 84165; 84300-TC; 84425; 84439-TC; 84443-TC; 84484-TC; 84550-TC; 85025-TC; 85610-TC; 85730-TC; 86140-TC; 86225; 86235; 86301; 86334; 86431-TC; 86706; 86803; 87040-TC; 87070-TC; 87086-TC; 87340; 89051-TC; 97110-TC; 97112-TC; 97116-TC; 97530-TC; 97535-TC; A4216; A4223; A6403; G0378; J1650; J1815; J1956; J3370; J3371; J3490; J7030; J7050; J7060; P9047; Q9967